=== PATIENT | female | born 1970 | race Native Hawaiian/Other Pacific Islander ===

== ENCOUNTER 2019-08-18 13:52 | Outpatient (CLI) | payer OTHER | END 2019-08-18 13:56 | disposition short-term general hospital (02) | LOC: AMB 13:52 | DX: S09.8XXA Other specified injuries of head, initial encounter (principal); V49.9XXA Car occupant (driver) (passenger) injured in unspecified traffic accident, initial encounter; Y92.89 Other specified places as the place of occurrence of the external cause | CPT/HCPCS: A0425; A0427 ==

== ENCOUNTER 2019-08-18 13:59 | Emergency (ER) | payer OTHER ==
[~2019-08-18] VITALS: Ht 160 cm; Wt 49.0 kg
[2019-08-18 14:15] VITALS: BP 115/70; TEMP 97.8
[2019-08-18 15:16] LABS: PLATELET COUNT 216 K/uL (152-353)
[2019-08-18 15:26] LABS: POTASSIUM 3.3 mmol/L (3.6-5.2)
== END 2019-08-18 17:20 | disposition home or self-care (01) ==
LOC: ED 13:59
PROVIDERS: Emergency Medicine
DX: S09.8XXA Other specified injuries of head, initial encounter (principal); F19.10 Other psychoactive substance abuse, uncomplicated; V49.3XXA Car occupant (driver) (passenger) injured in unspecified nontraffic accident, initial encounter; Y92.89 Other specified places as the place of occurrence of the external cause
CPT/HCPCS: 80053; 80307; 81000; 85027; 96360; 99284